=== PATIENT | female | born 1955 | race African-American/Black ===

== ENCOUNTER 2017-06-01 10:40 | Observation (INO) ==
[2017-06-01] MEDS ORDERED: ASPIRIN 325 MG TABLET PO STA (11:15)
[2017-06-01] MEDS ORDERED: NITROGLYCERIN 2% OINT 1 INCH/GM PACK TOP STA (11:15)
[2017-06-01] MEDS ORDERED: MORPHINE 2 MG/1 ML SYRINGE IV PRN (11:15)
[2017-06-01] MEDS ORDERED: ONDANSETRON 4 MG/2 ML VIAL IV PRN (11:15)
[2017-06-01] MEDS ORDERED: ENOXAPARIN 100 MG/ML SYRINGE SUBCUT STA (11:19)
[2017-06-01] MEDS ORDERED: NITROGLYCERIN 2% OINT 1 INCH/GM PACK TOP ONE (11:21)
[2017-06-01] MEDS ORDERED: ASPIRIN 325 MG TABLET ONE (11:21)
[2017-06-01] MEDS ORDERED: ENOXAPARIN 120 MG/0.8 ML SYRINGE SUBCUT ONE (11:21)
[2017-06-01 11:28] LABS: Basophils % 0.4 % (0.0-0.8); Eosinophils # 0.2 10*3/uL (0.0-0.87); Eosinophils % 3.3 % (0.00-10.9); Hematocrit 32.6 VOL% (35.7-47.0); Immature Granulocytes % 0.1 %; Immature Granulocytes Absolute 0.01 #; Lymphocytes # 2.1 10*3/uL (1.4-4.0); Mean Corpuscular HGB Conc 33.7 GM/DL (32-36); Mean Corpuscular Hemoglobin 27 PG (27-34); Mean Corpuscular Volume 78.6 FL (87-102); Mean Platelet Volume 9.1 FL (9.6-12.0); Monocytes # 0.5 10*3/uL (0.11-0.8); Neutrophils # 3.9 10*3/uL (1.4-7.4); Neutrophils % 58.2 % (38.7-73.9); Platelet Count 212 T/CUMM (130-400); Red Blood Count 4.15 MC/CUMM (3.8-5.5); Red Cell Distribution Width 15.2 % (9.3-17.3); White Blood Count 6.7 T/CUMM (4-12)
[2017-06-01 11:36] LABS: PT Patient Result 10.6 SECS; Partial Thromboplastin Time 27.1 SECS (0-40)
[2017-06-01 11:43] LABS: Alanine Aminotransferase 16 U/L (13-56); Albumin 3.1 G/DL (3.4-5.0); Alkaline Phosphatase 63 U/L (45-117); Aspartate Amino Transferase 19 U/L (0-37); Bilirubin,Total < 0.39 MG/DL (0.2-1.0); Blood Urea Nitrogen 8 MG/DL (7-18); Calcium 8.5 MG/DL (8.5-10.1); Glucose 101 MG/DL (74-106); Osmolality,Calculated 270.8 MOS/KG (273-304); Potassium 3.4 MMOL/L (3.5-5.1); Sodium 137 MMOL/L (136-145); Total Protein 6.8 G/DL (6.4-8.3)
[2017-06-01] MEDS ORDERED: MAGNESIUM SULF RIDER 4 GM in PREMIX 1 EACH IV PRN (13:11)
[2017-06-01] MEDS ORDERED: POTASSIUM CHLORIDE 20 MEQ TABLET PO PRN ×2 (13:11)
[2017-06-01] MEDS ORDERED: MAGNESIUM SULF RIDER 2 GM in PREMIX 1 EACH IV PRN (13:11)
[2017-06-01] MEDS: ENOXAPARIN 40 MG/0.4 ML SYRINGE SUBCUT SCH (15:13)
[2017-06-01] MEDS: ASPIRIN EC 325 MG TABLET PO SCH (15:13)
[2017-06-01] MEDS: PANTOPRAZOLE 40 MG TABLET PO SCH (15:14)
[2017-06-01] MEDS ORDERED: INFLUENZA VIRUS VACCINE 0.5 ML SYRINGE IM ONE (15:59)
[2017-06-01] MEDS ORDERED: ACETAMINOPHEN 325 MG TABLET PO PRN (18:30)
[2017-06-01] MEDS ORDERED: ZALEPLON 5 MG CAPSULE PO PRN (18:30)
[2017-06-01] MEDS: METOPROLOL TARTRATE 25 MG TABLET PO SCH (21:23)
[2017-06-02 01:06] LABS: Basophils % 0.2 % (0.0-0.8); Eosinophils # 0.3 10*3/uL (0.0-0.87); Eosinophils % 4.5 % (0.00-10.9); Hematocrit 30.7 VOL% (35.7-47.0); Hemoglobin 10.4 GM/DL (12.0-16.0); Immature Granulocytes % 0.2 %; Immature Granulocytes Absolute 0.01 #; Lymphocytes # 2.3 10*3/uL (1.4-4.0); Lymphocytes % 36.2 % (21.3-54.2); Mean Corpuscular HGB Conc 33.9 GM/DL (32-36); Mean Corpuscular Hemoglobin 27 PG (27-34); Mean Corpuscular Volume 78.9 FL (87-102); Mean Platelet Volume 9.4 FL (9.6-12.0); Monocytes # 0.5 10*3/uL (0.11-0.8); Monocytes % 7.3 % (1.7-12.7); Neutrophils # 3.3 10*3/uL (1.4-7.4); Neutrophils % 51.6 % (38.7-73.9); Platelet Count 212 T/CUMM (130-400); Red Blood Count 3.89 MC/CUMM (3.8-5.5); Red Cell Distribution Width 15.3 % (9.3-17.3); White Blood Count 6.3 T/CUMM (4-12)
[2017-06-02] MEDS ORDERED: LOSARTAN 50 MG TABLET PO SCH (09:00)
[2017-06-02] MEDS ORDERED: ESTRADIOL 2 MG TABLET PO SCH (09:00)
[2017-06-02 09:56] LABS: Calcium 8.3 MG/DL (8.5-10.1); Magnesium 1.5 MG/DL (1.8-2.4); Osmolality,Calculated 273.5 MOS/KG (273-304); Potassium 3.4 MMOL/L (3.5-5.1); Risk Ratio 3.22; VLDL CHOLESTEROL 23.6 MG/DL
[2017-06-02] MEDS: ASPIRIN EC 325 MG TABLET PO SCH (10:53)
[2017-06-02] MEDS: METOPROLOL TARTRATE 25 MG TABLET PO SCH (10:53)
[2017-06-02] MEDS: PANTOPRAZOLE 40 MG TABLET PO SCH (11:04)
[2017-06-02] MEDS ORDERED: POTASSIUM CHLORIDE 20 MEQ TABLET PO ONE (11:55)
[2017-06-02] MEDS ORDERED: MAGNESIUM OXIDE 400 MG TABLET PO ONE (11:56)
[2017-06-02] MEDS ORDERED: ALUM/MAG/SIMETH/LIDO VISC 1:1 30 ML BOTTLE PO ONE (12:30)
[2017-06-02] MEDS: ENOXAPARIN 40 MG/0.4 ML SYRINGE SUBCUT SCH (13:06)
[2017-06-02 14:45] VITALS: BP 136/78
[2017-06-02] MEDS ORDERED: MAGNESIUM OXIDE 400 MG TABLET PO SCH (21:00)
== END 2017-06-02 16:20 | disposition home or self-care (01) ==
LOC: N.EDINP 10:40 → N.ED 10:40 → N.TELES 14:25
PROVIDERS: ADMIT Internal Medicine; ATTEND Internal Medicine